=== PATIENT | male | born 1950 | race Hispanic/Latino ===

== ENCOUNTER 2021-08-02 17:47 | Emergency (ER) | payer OTHER ==
[~2021-08-02] VITALS: Ht 167.6 cm; Wt 65.8 kg
[2021-08-02 17:50] VITALS: BP 107/71
[2021-08-02] MEDS ORDERED: HYDROCODONE/ACETAMINOPHEN 5/325 MG TAB PO ONE (19:00)
[2021-08-02] MEDS ORDERED: MELO7.5T12 PO (20:02)
== END 2021-08-02 20:21 | disposition home or self-care (01) ==
LOC: EDH 17:47
DX: M17.12 Unilateral primary osteoarthritis, left knee (principal); R07.89 Other chest pain; Z79.1 Long term (current) use of non-steroidal anti-inflammatories (NSAID); Z79.899 Other long term (current) drug therapy
CPT/HCPCS: 71101; 73562